=== PATIENT | male | born 1995 | race Hispanic/Latino ===

== ENCOUNTER 2020-12-13 02:35 | Emergency (ER) | payer OTHER ==
[~2020-12-13] VITALS: Ht 172.7 cm; Wt 97.5 kg
[2020-12-13] MEDS ORDERED: OCTYL 2-CYANOACRYLATE 1 EACH TP ONE (03:01)
[2020-12-13] MEDS ORDERED: TETANUS/DIPHTHERIA TOXOID [ADULT] 0.5 ML VIAL IM ONE (03:01)
[2020-12-13 03:12] VITALS: BP 148/95
== END 2020-12-13 03:26 | disposition home or self-care (01) ==
LOC: EDH 02:35
DX: S01.81XA Laceration without foreign body of other part of head, initial encounter (principal); W22.8XXA Striking against or struck by other objects, initial encounter; Y93.89 Activity, other specified; Y92.89 Other specified places as the place of occurrence of the external cause; Y99.8 Other external cause status
CPT/HCPCS: 12011; 90471; 90714

== ENCOUNTER 2020-12-14 12:40 | Emergency (ER) | payer OTHER ==
[~2020-12-14] VITALS: Ht 172.7 cm; Wt 97.5 kg
[2020-12-14 12:42] VITALS: BP 142/65
[2020-12-14 14:07] VITALS: BP 138/77
[2020-12-14 14:56] VITALS: BP 129/58
[2020-12-14 16:11] VITALS: BP 128/61
[2020-12-14 18:02] VITALS: BP 138/79
== END 2020-12-14 18:28 | disposition home or self-care (01) ==
LOC: EDH 12:40
DX: S06.0X0A Concussion without loss of consciousness, initial encounter (principal); X58.XXXA Exposure to other specified factors, initial encounter; Y93.89 Activity, other specified; Y92.89 Other specified places as the place of occurrence of the external cause; Y99.8 Other external cause status
CPT/HCPCS: 70450